=== PATIENT | female | born 1980 | race Two or more races ===

== ENCOUNTER → 2024-04-24 | Outpatient (CLI) | payer MEDICAID ==
[2024-04-24 08:23] LABS: Basophils # (auto) 0 10 ^3/uL (0-0.2); Basophils % (auto) 0.6 % (0.0-2.0); Eosinophils # (auto) 0.4 10 ^3/uL (0-0.8); Eosinophils % (auto) 8.8 % (0.0-7.0); Hematocrit 39.4 % (36.0-46.0); Lymphocytes # (auto) 1.4 10 ^3/uL (0.4-5.4); Lymphocytes % (auto) 29.6 % (10.0-50.0); Mean Corpuscular Hgb Conc. 32.9 g/dL (32.0-36.0); Mean Corpuscular Volume 82.1 fL (80.0-100.0); Monocytes # (auto) 0.5 10 ^3/uL (0-1.3); Monocytes % (auto) 10.3 % (0.0-12.0); Neutrophils # (auto) 2.4 10 ^3/uL (1.6-8.6); Neutrophils % (auto) 50.7 % (37.0-80.0); Nucleated Red Blood Cells % 0.1 %; Platelet Count (auto) 210 10^3/uL (140-450); Red Cell Distribution Width 14.7 % (11.8-14.3); White Blood Cell 4.7 10^3/uL (4.4-10.8)
[2024-04-24 08:39] LABS: Urine Bacteria FEW /hpf (None Seen); Urine Blood Negative /uL (Negative); Urine Protein, UAD Negative (Negative); Urine Urobilinogen Normal (Negative); Urine WBC 44 /hpf (0 - 5)
[2024-04-24 08:40] LABS: Urine Clarity Cloudy (Clear); Urine Color Light-Yellow (Yellow)
[2024-04-24 09:30] LABS: Amphetamine Screen, Urine Neg (NEGATIVE)
[2024-04-24 09:31] LABS: Barbiturate Scree,Urine Neg (NEGATIVE); Benzodiazephine Screen, Urine Neg (NEGATIVE); Cocaine Screen, Urine Neg (NEGATIVE)
[2024-04-24 09:32] LABS: Cannabinoid Screen, Urine Neg (NEGATIVE); Opiate Scree,Urine Neg (NEGATIVE); Phencyclidine Screen, Urine Neg (NEGATIVE)
[2024-04-24 09:34] LABS: Alanine Aminotransferase 11 U/L (7-40); Alkaline Phosphatase 101 U/L (46-116); Anion Gap 6 (5-15); Calcium 9.5 mg/dL (8.7-10.4); Carbon Dioxide 28 mmol/L (20-31); Chloride 108 mmol/L (98-107); Glucose 88 mg/dL (74-106); Potassium 4.3 mmol/L (3.5-5.1); Sodium 142 mmol/L (136-145); Triglycerides 45 mg/dL (< 150)
[2024-04-24 09:35] LABS: Aspartate Aminotransferase < 8 U/L (13-40); BUN/Creatinine Ratio 10.1 (10.0-20.0); Blood Urea Nitrogen 7 mg/dL (9-23); LDL Cholesterol 48 mg/dL (< 100)
[2024-04-24 09:36] LABS: Bilirubin, Total 0.3 mg/dL (0.2-1.0); Cholesterol 134 mg/dL (< 200); HDL Cholesterol 73 mg/dL (40-59); Total Protein 6.7 g/dL (5.7-8.2)
[2024-04-24 11:00] LABS: Follicle Stimulating Hormone 24.68 IU/L (SEE BELOW)
[2024-04-24 11:01] LABS: Leuteinizing Hormone 19.5 IU/L
== END | disposition home or self-care (01) ==
LOC: LAB 07:22
PROVIDERS: ATTEND Internal Medicine
DX: N92.6 Irregular menstruation, unspecified (principal); E66.9 Obesity, unspecified; Z00.00 Encounter for general adult medical examination without abnormal findings
CPT/HCPCS: 36415; 80053; 80061; 80164; 80307; 81001; 82672; 83001; 83002; 83036; 84144; 84443; 85025

== ENCOUNTER → 2024-05-29 | Outpatient (CLI) | payer MEDICAID ==
[2024-05-29 08:53] LABS: Uric Acid 5.6 mg/dL (3.1-7.8)
[2024-05-29 09:02] LABS: CRP High Sensitivity 1.35 mg/dL (<1.0); Erythrocyte Sedimentation Rate 20 mm/hr (0-20)
[2024-05-29 11:10] LABS: Free T3 4.28 pg/mL (2.3-4.2); T3 Total 1.62 ng/mL (0.60-1.81)
[2024-05-29 11:11] LABS: Free T4 (Free Thyroxine) 1.62 ng/dL (0.89-1.76)
[2024-05-30 08:07] LABS: Rheumatoid Arthritis Factor 16.4 IU/mL (<14.0)
[2024-05-30 14:07] LABS: Anti-Nuclear Antibody Direct Negative (Negative)
== END | disposition home or self-care (01) ==
LOC: LAB 06:32
PROVIDERS: ATTEND Internal Medicine
DX: M54.50 Low back pain, unspecified (principal); M25.562 Pain in left knee
CPT/HCPCS: 36415; 84439; 84443; 84480; 84481; 84550; 85652; 86038; 86141; 86431

== ENCOUNTER → 2024-07-06 | Outpatient (CLI) | payer MEDICAID ==
[2024-07-06 10:47] LABS: T3 Total 2.2 ng/mL (0.60-1.81)
[2024-07-06 10:48] LABS: Free T3 5.36 pg/mL (2.3-4.2)
[2024-07-06 10:49] LABS: Free T4 (Free Thyroxine) 1.64 ng/dL (0.89-1.76)
== END | disposition home or self-care (01) ==
LOC: LAB 07:12
PROVIDERS: ATTEND Internal Medicine
DX: M25.562 Pain in left knee (principal); M54.50 Low back pain, unspecified; F25.0 Schizoaffective disorder, bipolar type; Z84.3 Family history of consanguinity
CPT/HCPCS: 36415; 84439; 84443; 84480; 84481; 86141

== ENCOUNTER → 2024-08-31 | Outpatient (CLI) | payer MEDICAID ==
[2024-08-31 14:54] LABS: Basophils # (auto) 0 10 ^3/uL (0-0.2); Eosinophils # (auto) 0.1 10 ^3/uL (0-0.8); Monocytes # (auto) 0.5 10 ^3/uL (0-1.3)
[2024-08-31 14:56] LABS: Basophils % (auto) 0.4 % (0.0-2.0); Eosinophils % (auto) 3.5 % (0.0-7.0); Hemoglobin 14.8 g/dL (12.2-16.2); Lymphocytes # (auto) 1.8 10 ^3/uL (0.4-5.4); Lymphocytes % (auto) 43.9 % (10.0-50.0); Mean Corpuscular Hemoglobin 26.2 pg (28.0-32.0); Mean Corpuscular Volume 79.4 fL (80.0-100.0); Monocytes % (auto) 12.1 % (0.0-12.0); Neutrophils # (auto) 1.6 10 ^3/uL (1.6-8.6); Neutrophils % (auto) 40.1 % (37.0-80.0); Nucleated Red Blood Cells % 0.4 %; Platelet Count (auto) 227 10^3/uL (140-450); Red Blood Cells 5.67 10^6/uL (4.0-5.20); Red Cell Distribution Width 13.8 % (11.8-14.3)
[2024-08-31 15:18] LABS: Alkaline Phosphatase 111 U/L (46-116); Anion Gap 8 (5-15); Calcium 9.9 mg/dL (8.7-10.4); Carbon Dioxide 26 mmol/L (20-31); Chloride 105 mmol/L (98-107); Cholesterol 134 mg/dL (< 200); Glucose 86 mg/dL (74-106); HDL Cholesterol 56 mg/dL (40-59); LDL Cholesterol 60 mg/dL (< 100); Potassium 3.9 mmol/L (3.5-5.1); Sodium 139 mmol/L (136-145); Total Protein 7.9 g/dL (5.7-8.2); Triglycerides 70 mg/dL (< 150)
[2024-08-31 15:19] LABS: Bilirubin, Total 0.4 mg/dL (0.2-1.0)
[2024-08-31 15:21] LABS: Thyroid Stimulating Hormone < 0.01 uIU/mL (0.55-4.78)
[2024-08-31 15:23] LABS: Beta HCG, Quantitative 1.2 mIU/mL (1.5-4.2)
[2024-08-31 15:24] LABS: Alanine Aminotransferase < 9 U/L (7-40); Albumin 4.8 g/dL (3.2-4.8); Aspartate Aminotransferase 9 U/L (13-40); Blood Urea Nitrogen 8 mg/dL (9-23)
== END | disposition home or self-care (01) ==
LOC: LAB 14:29
PROVIDERS: ATTEND Internal Medicine
DX: N95.1 Menopausal and female climacteric states (principal); R53.83 Other fatigue; E22.1 Hyperprolactinemia; Z33.1 Pregnant state, incidental; E04.1 Nontoxic single thyroid nodule
CPT/HCPCS: 36415; 80053; 80061; 82670; 83001; 83036; 84443; 84702; 85025

== ENCOUNTER → 2024-10-11 | Outpatient (CLI) | payer MEDICAID ==
[2024-10-11 13:03] LABS: Albumin 4.6 g/dL (3.2-4.8); Anion Gap 10 (5-15); BUN/Creatinine Ratio 12.9 (10.0-20.0); Calcium 10.2 mg/dL (8.7-10.4); Carbon Dioxide 23 mmol/L (20-31); GFR African American 116 mL/min; GFR Non-African American 96 mL/min; Glucose 96 mg/dL (74-106); Phosphorus 3.4 mg/dL (2.4-5.1); Sodium 140 mmol/L (136-145)
[2024-10-11 13:07] LABS: Alanine Aminotransferase < 9 U/L (7-40); Aspartate Aminotransferase < 8 U/L (13-40); Blood Urea Nitrogen 9 mg/dL (9-23); Chloride 107 mmol/L (98-107)
[2024-10-11 13:34] LABS: Basophils # (auto) 0 10 ^3/uL (0-0.2); Eosinophils # (auto) 0.1 10 ^3/uL (0-0.8); Eosinophils % (auto) 2.3 % (0.0-7.0); Hemoglobin 14.3 g/dL (12.2-16.2); Monocytes # (auto) 0.4 10 ^3/uL (0-1.3); Neutrophils # (auto) 3.3 10 ^3/uL (1.6-8.6)
[2024-10-11 13:37] LABS: Basophils % (auto) 0.5 % (0.0-2.0); Hematocrit 43.3 % (36.0-46.0); Lymphocytes # (auto) 1.3 10 ^3/uL (0.4-5.4); Mean Corpuscular Hgb Conc. 33.1 g/dL (32.0-36.0); Mean Corpuscular Volume 78.7 fL (80.0-100.0); Monocytes % (auto) 7.1 % (0.0-12.0); Neutrophils % (auto) 64.1 % (37.0-80.0); Nucleated Red Blood Cells % 0.2 %; Platelet Count (auto) 268 10^3/uL (140-450); White Blood Cell 5.1 10^3/uL (4.4-10.8)
[2024-10-11 13:43] LABS: Erythrocyte Sedimentation Rate 19 mm/hr (0-20)
== END | disposition home or self-care (01) ==
LOC: LAB 11:46
PROVIDERS: ATTEND Internal Medicine
DX: M05.9 Rheumatoid arthritis with rheumatoid factor, unspecified (principal); E04.1 Nontoxic single thyroid nodule; F31.9 Bipolar disorder, unspecified; F20.9 Schizophrenia, unspecified; R79.89 Other specified abnormal findings of blood chemistry; R89.9 Unspecified abnormal finding in specimens from other organs, systems and tissues
CPT/HCPCS: 36415; 80069; 80164; 82565; 84443; 84450; 84460; 85025; 85652; 86200; 86703; 86780; 87902

== ENCOUNTER 2025-02-21 11:35 | Outpatient (CLI) | payer MEDICAID ==
[2025-02-21 12:33] LABS: Free T4 (Free Thyroxine) 0.93 ng/dL (0.89-1.76)
[2025-02-21 12:34] LABS: Free T3 2.19 pg/mL (2.3-4.2)
== END 2025-02-21 17:00 | disposition home or self-care (01) ==
LOC: LAB 11:35
PROVIDERS: ATTEND Internal Medicine Endocrinology, Diabetes & Metabolism
DX: E05.90 Thyrotoxicosis, unspecified without thyrotoxic crisis or storm (principal)
CPT/HCPCS: 36415; 84439; 84443; 84445; 84480; 84481; 86376